=== PATIENT | female | born 2000 | race Hispanic/Latino ===

== ENCOUNTER 2020-03-08 07:31 | Emergency (ER) | payer OTHER ==
[2020-03-08 15:52] LABS: SARS-CoV-2 PCR by NAA DETECTED (NotDetected)
== END 2020-03-08 08:00 | disposition home or self-care (01) ==
LOC: ERS 07:31
DX: O99.891 Other specified diseases and conditions complicating pregnancy (principal); R05 Cough; M79.10 Myalgia, unspecified site; R51.9 Headache, unspecified; Z20.822 Contact with and (suspected) exposure to COVID-19
CPT/HCPCS: 87635; 99283; U0003; U0005